=== PATIENT | female | born 1990 | race Caucasian/White ===

== ENCOUNTER 2019-04-19 05:56 | Inpatient (IN) ==
[2019-04-19] MEDS: Ringers Solution, Lactated 1,000 ML IVC SCH ×4 (03:28→17:56)
[~2019-04-19 05:56] MED LIST: *HR* Nalbuphine 10 MG/ML AMPUL IVP PRN; Famotidine 20 MG/2 ML VIAL IVP PRN; Metoclopramide 10 MG/2 ML VIAL IVP PRN
[2019-04-19] MEDS ORDERED: EPHEDrine 50 MG/ML VIAL IVP PRN (06:11)
[2019-04-19 06:39] LABS: Basophils % 0.2 %; Eosinophils # 0.2 K/mcL (0.0-0.6); Eosinophils % 1.5 %; Hemoglobin 12.8 g/dL (11.5-15.4); Immature Granulocytes % 0.7 % (0-4); Lymphocytes # 1.7 K/mcL (0.6-4.6); Lymphocytes % 16.9 %; Mean Corpuscular HGB Conc 34.6 g/dL (31.6-35.5); Mean Corpuscular Hemoglobin 29.5 pg (28.0-33.3); Mean Corpuscular Volume 85.3 fL (83.0-100.0); Mean Platelet Volume 11.6 fL (9.4-12.4); Monocytes # 0.8 K/mcL (0.0-1.3); Neutrophils # 7.5 K/mcL (1.6-8.9); Platelet Count 196 K/mcL (140-400); Red Blood Count 4.34 M/mcL (3.82-4.97); Red Cell Distribution Width 13.2 % (11.5-14.5); Segmented Neutrophils % 72.7 %; White Blood Count 10.3 K/mcL (4.3-11.1)
[2019-04-19 07:57] LABS: Amphetamine Screen,Urine Negative ng/mL (Cutoff=1000); Barbiturate Screen,Urine Negative ng/mL (Cutoff=200)
[2019-04-19 07:59] LABS: Benzodiazepines Screen,Urine Negative ng/mL (Cutoff=300); Cannabinoid Screen,Urine Negative ng/mL (Cutoff = 50); Cocaine Screen,Urine Negative ng/mL (Cutoff= 300); Opiate Screen,Urine Negative ng/mL (Cutoff=300); Phencyclidine Screen,Urine Negative ng/mL (Cutoff=25)
[2019-04-19] MEDS: Epidural Premix (fent/bupiv) 110 ML EP SCH ×3 (11:02→22:51)
[2019-04-19] MEDS: Oxytocin 20 units/ LR 1000 mL 20 UNIT/1,000 ML BAG IVC SCH (13:46)
[2019-04-19] MEDS ORDERED: Acetaminophen 325 MG TABLET PO ONE (16:49)
[2019-04-19] MEDS ORDERED: Famotidine 20 MG TABLET PO SCH (21:00)
[2019-04-20] MEDS: Epidural Premix (fent/bupiv) 110 ML EP SCH (06:14)
[2019-04-20] MEDS ORDERED: Ondansetron 4 MG/2 ML VIAL IVP PRN ×3 (07:24→20:30)
[2019-04-20] MEDS ORDERED: *HR* Morphine Sulfate/PF 10 MG/10 ML AMPUL ONE (15:19)
[2019-04-20] MEDS ORDERED: Chloroprocaine/PF 20 ML VIAL INFILT ONE (15:19)
[2019-04-20] MEDS ORDERED: *HR* Oxytocin 10 UNIT/ML VIAL IM ONE (15:19)
[2019-04-20] MEDS ORDERED: Azithromycin 500 MG in 0.9 % Sodium Chloride 250 ML IVPB ONE (15:30)
[2019-04-20] MEDS ORDERED: *HR* Promethazine 25 MG/ML VIAL IVP PRN (15:55)
[2019-04-20] MEDS ORDERED: Acetaminophen IV 1,000 MG/100 ML INFUS..BTL IVPB ONE (15:55)
[2019-04-20] MEDS ORDERED: Ondansetron 4 MG/2 ML VIAL ONE (16:30)
[2019-04-20] MEDS: *HR* HYDROmorphone (PF) 1 MG/ML SYRINGE IVP PRN ×4 (16:47→18:55)
[2019-04-20] MEDS: Oxytocin 20 units/ LR 1000 mL 20 UNIT/1,000 ML BAG IVC SCH ×2 (17:01→20:45)
[2019-04-20] MEDS ORDERED: Simethicone 80 MG TAB.CHEW PO PRN (20:30)
[2019-04-20] MEDS ORDERED: Sennosides 8.6 MG TABLET PO PRN (20:30)
[2019-04-20] MEDS ORDERED: Metoclopramide 10 MG/2 ML VIAL IVP PRN (20:30)
[2019-04-20] MEDS ORDERED: Ringers Solution, Lactated 1,000 ML IVC SCH (20:30)
[2019-04-20] MEDS ORDERED: Rho Immune Globulin 1,500 UNIT SYRINGE IM ONE (20:30)
[2019-04-20] MEDS: metroNIDAZOLE 500 MG TABLET PO SCH (20:44)
[2019-04-20] MEDS: cephALEXin 500 MG CAPSULE PO SCH (20:44)
[2019-04-20] MEDS: Ibuprofen 600 MG TABLET PO PRN (20:45)
[2019-04-20] MEDS: *HR* OxyCODONE/APAP 5/325 TABLET PO PRN (20:45)
[2019-04-21] MEDS: *HR* OxyCODONE/APAP 5/325 TABLET PO PRN ×2 (04:57→15:51)
[2019-04-21] MEDS: Ibuprofen 600 MG TABLET PO PRN ×3 (04:58→21:48)
[2019-04-21] MEDS: Oxytocin 20 units/ LR 1000 mL 20 UNIT/1,000 ML BAG IVC SCH (04:58)
[2019-04-21 06:08] LABS: Basophils % 0.2 %; Eosinophils # 0.2 K/mcL (0.0-0.6); Eosinophils % 1.4 %; Hematocrit 30.8 % (35.3-44.9); Hemoglobin 10.3 g/dL (11.5-15.4); Immature Granulocytes % 0.4 % (0-4); Lymphocytes # 0.7 K/mcL (0.6-4.6); Lymphocytes % 5.7 %; Mean Corpuscular HGB Conc 33.4 g/dL (31.6-35.5); Mean Corpuscular Hemoglobin 29.5 pg (28.0-33.3); Mean Corpuscular Volume 88.3 fL (83.0-100.0); Mean Platelet Volume 11.2 fL (9.4-12.4); Monocytes # 0.7 K/mcL (0.0-1.3); Monocytes % 5.9 %; Neutrophils # 10.2 K/mcL (1.6-8.9); Platelet Count 149 K/mcL (140-400); Red Blood Count 3.49 M/mcL (3.82-4.97); Red Cell Distribution Width 13.5 % (11.5-14.5); Segmented Neutrophils % 86.4 %; White Blood Count 11.8 K/mcL (4.3-11.1)
[2019-04-21] MEDS: Prenatal Vit/FA 1 EACH TABLET PO SCH (08:42)
[2019-04-21] MEDS: metroNIDAZOLE 500 MG TABLET PO SCH ×3 (08:43→21:49)
[2019-04-21] MEDS: cephALEXin 500 MG CAPSULE PO SCH ×3 (08:43→21:49)
[2019-04-21] MEDS: Acetaminophen 325 MG TABLET PO SCH ×4 (08:44→23:57)
[2019-04-22] MEDS: Ibuprofen 600 MG TABLET PO PRN (04:29)
[2019-04-22] MEDS: *HR* OxyCODONE/APAP 5/325 TABLET PO PRN (06:46)
[2019-04-22] MEDS: metroNIDAZOLE 500 MG TABLET PO SCH (07:50)
[2019-04-22] MEDS: Prenatal Vit/FA 1 EACH TABLET PO SCH (07:50)
[2019-04-22] MEDS: cephALEXin 500 MG CAPSULE PO SCH (07:51)
[2019-04-22 07:58] VITALS: BP 121/66
== END 2019-04-22 13:25 | disposition home or self-care (01) | DRG 540 ==
LOC: 1NENULAB → 1NENUOBS 04-20 20:30
PROVIDERS: ADMIT Registered Nurse; ATTEND Registered Nurse